=== PATIENT | male | born 1995 | race Caucasian/White ===

== ENCOUNTER 2016-12-20 15:03 | Emergency (ER) | payer OTHER | END 2016-12-20 18:40 | disposition home or self-care (01) | LOC: ER1 15:03 | DX: K40.90 Unilateral inguinal hernia, without obstruction or gangrene, not specified as recurrent (principal) | CPT/HCPCS: 81001; 87086; 99283 ==

== ENCOUNTER → 2021-10-15 | Outpatient (CLI) | payer OTHER | LOC: LAB 06:51 | DX: Z20.822 Contact with and (suspected) exposure to COVID-19 (principal) | CPT/HCPCS: U0002 ==

== ENCOUNTER → 2021-10-24 | Outpatient (CLI) | payer OTHER | LOC: EROP 07:24 | DX: Z20.822 Contact with and (suspected) exposure to COVID-19 (principal) | CPT/HCPCS: U0002 ==

== ENCOUNTER 2021-11-20 07:28 | Emergency (ER) | payer BC ==
[2021-11-20 08:19] LABS: RED BLOOD COUNT 4.63 M/UL (4.20-5.50); WHITE BLOOD COUNT 5.8 K/UL (4.5-11.0)
[2021-11-20 08:48] LABS: BUN/CREATININE RATIO 8 (0-10)
== END 2021-11-20 11:10 | disposition home or self-care (01) ==
LOC: ER1 07:28
PROVIDERS: Emergency Medicine
DX: R07.89 Other chest pain (principal); Z90.79 Acquired absence of other genital organ(s); F17.290 Nicotine dependence, other tobacco product, uncomplicated
CPT/HCPCS: 71045; 80048; 82550; 82553; 83874; 84484; 85025; 93005; 96372; 99284; J1885

== ENCOUNTER 2022-01-25 15:18 | Emergency (ER) | payer OTHER | END 2022-01-25 17:07 | disposition home or self-care (01) | LOC: ER1 15:18 | DX: S50.12XA Contusion of left forearm, initial encounter (principal); M25.562 Pain in left knee; R51.9 Headache, unspecified; F17.290 Nicotine dependence, other tobacco product, uncomplicated; Z90.79 Acquired absence of other genital organ(s); V49.9XXA Car occupant (driver) (passenger) injured in unspecified traffic accident, initial encounter | CPT/HCPCS: 73090; 73564; 99283 ==